=== PATIENT | female | born 1995 | race Two or more races ===

== ENCOUNTER → 2017-07-16 | Outpatient (REF) | payer OTHER ==
[2017-07-20 00:06] LABS: HSV TYPE I IgM AB <1:10 titer (<1:10); HSV TYPE II IgM ABY <1:10 titer (<1:10)
== END ==
LOC: M SFHCLERA 11:13
PROVIDERS: ATTEND Nurse Practitioner Family
DX: K13.70 Unspecified lesions of oral mucosa (principal); N76.0 Acute vaginitis

== ENCOUNTER → 2018-05-30 | Outpatient (REF) | payer OTHER | LOC: M SFHCLERA 11:16 | DX: J02.9 Acute pharyngitis, unspecified (principal) ==